=== PATIENT | male | born 1970 | race Caucasian/White ===

== ENCOUNTER 2017-11-24 15:45 | Emergency (ER) | payer SELFPAY ==
[2017-11-24] MEDS ORDERED: Diphtheria,Pertussis(Acell),Tetanus Vaccine 0.5 ML SDV IM ONE (15:48)
[2017-11-24] MEDS ORDERED: Bacitracin Oint 1 GM U/D Packet TOP ONE (16:24)
--- NOTE | 2017-11-24 16:32 | EDM.PDOC ---
ED HPI GENERAL MEDICAL PROBLEM - General Chief Complaint: Laceration Stated Complaint: CUT BY CHAINSAW Time Seen by Provider: 11/24/17 16:15 Source of Information: Reports: Patient, RN History Limitations: Reports: No Limitations - History of Present Illness INITIAL COMMENTS - FREE TEXT/NARRATIVE: 47 yo male accidentally lacerated his L forearm with a chainsaw today. Tetanus is not UTD. Here for eval and repair. 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) (none) - Related Data Allergies Allergy/AdvReac Type Severity Reaction Status Date / Time No Known Allergies Allergy Verified 11/24/17 16:06 Home Meds: Home Meds NK [No Known Home Meds] 11/24/17 [History] Past Medical History - Past Health History Medical/Surgical History: Denies Medical/Surgical History Social & Family History - Tobacco Use Smoking Status *Q: Current Every Day Smoker Years of Tobacco use: 37 Packs/Tins Daily: 1 - Caffeine Use Caffeine Use: Reports: Coffee, Energy Drinks - Recreational Drug Use Recreational Drug Use: No ED ROS GENERAL - Review of Systems Review Of Systems: See Below Constitutional: Reports: No Symptoms Respiratory: Reports: No Symptoms Cardiovascular: Reports: No Symptoms GI/Abdominal: Reports: No Symptoms Musculoskeletal: Reports: No Symptoms Skin: Reports: Wound (laceration L forearm) Neurological: Reports: No Symptoms ED EXAM, SKIN/RASH Exam: See Below Exam Limited By: No Limitations General Appearance: Alert, WD/WN, No Apparent Distress Extremities: Normal Inspection, Normal Range of Motion, Non-Tender, No Pedal Edema Neurological: Alert, Oriented, CN II-XII Intact, Normal Cognition, No Motor/ Sensory Deficits Psychiatric: Normal Affect, Normal Mood Skin: Warm, Dry, Normal Color, No Rash, Wound/Incision Location, Skin: Upper Extremity, Left Characteristics: Linear ( ~5 cm in length mid ant/lateral L forearm. Bleeding controlled on arrival. ) Associated features: Tenderness. No: Warmth, Swelling, Induration Lymphatic: No Adenopathy ED SKIN PROCEDURES - Laceration/Wound Repair Left Middle Anterior Lateral Arm Appearance: Subcutaneous, Linear, Mildly Contaminated Distal NVT: Neuro & Vascular Intact, No Tendon Injury Anesthetic Type: Local Local Anesthesia - Lidocaine (Xylocaine): 1% Plain Local Anesthetic Volume: 5cc Skin Prep: Saline Saline Irrigation (cc's): 60 Exploration/Debridement/Repair: Minimal Debridement, No Foreign Material Found Closed with: Sutures Suture Size: other (5-0) # of Sutures: 8 Suture Type: Nylon, Interrupted, Simple, Mattress Drain Placement: No Sterile Dressing Applied: Nurse Tetanus Status Addressed: Yes Complications: No Course - Vital Signs Last Recorded V/S: Last Vital Signs Temp 36.7 C 11/24/17 16:08 Pulse 69 11/24/17 16:08 Resp 16 11/24/17 16:08 BP 128/82 11/24/17 16:08 Pulse Ox 96 11/24/17 16:08 - Orders/Labs/Meds Orders: Active Orders 24 hr Category Date Time Status Vaccines to be Administered [RC] PER UNIT ROUTINE Care 11/24/17 15:48 Active Meds: Medications Discontinued Medications Generic Name Dose Route Start Last Admin Trade Name Negar PRN Reason Stop Dose Admin Bacitracin 1 dose 11/24/17 16:24 11/24/17 16:29 Bacitracin Oint 1 Gm TOP 11/24/17 16:25 1 dose ONETIME ONE Administration Diphtheria/Tetanus/Acell Pertussis 0.5 ml 11/24/17 15:48 11/24/17 16:23 Adacel IM 11/24/17 15:49 0.5 ml .ONCE ONE Administration Lidocaine HCl 10 ml 11/24/17 16:24 11/24/17 16:27 Xylocaine-Mpf 1% INJECT 11/24/17 16:25 10 ml ONETIME ONE Administration Departure - Departure Time of Disposition: 17:10 Disposition: Home, Self-Care 01 Condition: Good Clinical Impression: Laceration of forearm, left Qualifiers: Encounter type: initial encounter Qualified Code(s): S51.812A - Laceration without foreign body of left forearm, initial encounter - Discharge Information Referrals: PCP,None [Primary Care Provider] - Forms: ED Department Discharge - My Orders Last 24 Hours: My Active Orders 11/24/17 15:48 Vaccines to be Administered [RC] PER UNIT ROUTINE - Assessment/Plan Last 24 Hours: My Active Orders 11/24/17 15:48 Vaccines to be Administered [RC] PER UNIT ROUTINE
== END 2017-11-24 17:21 | disposition home or self-care (01) ==
LOC: JP.ED 15:45
DX: S51.812A Laceration without foreign body of left forearm, initial encounter (principal); F17.210 Nicotine dependence, cigarettes, uncomplicated; W29.3XXA Contact with powered garden and outdoor hand tools and machinery, initial encounter; Z23 Encounter for immunization
CPT/HCPCS: 12002; 90471; 90715; 99283-25